=== PATIENT | female | born 1980 | race Caucasian/White ===

== ENCOUNTER 2017-10-26 08:04 | Outpatient (CLI) | payer MEDICAID | END 2017-10-26 10:03 | disposition home or self-care (01) | LOC: OBT 08:04 → L-D 08:04 → OBT 10:03 | DX: O26.843 Uterine size-date discrepancy, third trimester (principal); O09.523 Supervision of elderly multigravida, third trimester; Z3A.31 31 weeks gestation of pregnancy | CPT/HCPCS: 76815; 76818 ==

== ENCOUNTER 2017-11-02 03:00 | Outpatient (CLI) | payer BC, MEDICAID | END 2017-11-02 06:05 | disposition home or self-care (01) | LOC: OBT 03:00 → L-D 03:00 → OBT 06:05 | DX: O26.893 Other specified pregnancy related conditions, third trimester (principal); F41.0 Panic disorder [episodic paroxysmal anxiety]; O09.523 Supervision of elderly multigravida, third trimester; Z3A.33 33 weeks gestation of pregnancy | CPT/HCPCS: 76818 ==

== ENCOUNTER 2017-11-20 10:38 | Outpatient (CLI) | payer BC | END 2017-11-20 11:49 | disposition home or self-care (01) | LOC: OBT 10:38 → L-D 10:38 → OBT 11:49 | DX: O09.513 Supervision of elderly primigravida, third trimester (principal); Z3A.35 35 weeks gestation of pregnancy | CPT/HCPCS: 76818 ==